=== PATIENT | female | born 1990 | race Caucasian/White ===

== ENCOUNTER 2018-11-17 22:40 | Emergency (ER) | payer OTHER ==
[~2018-11-17] VITALS: Ht 165.1 cm; Wt 123.8 kg
[2018-11-17 22:57] VITALS: Ht 165.1 cm; Wt 123.8 kg
[2018-11-18 01:17] VITALS: BP 109/61
== END 2018-11-18 01:17 | disposition home or self-care (01) ==
LOC: ED 22:40
DX: J20.9 Acute bronchitis, unspecified (principal); J06.9 Acute upper respiratory infection, unspecified

== ENCOUNTER 2019-06-18 22:24 | Emergency (ER) | payer OTHER ==
[~2019-06-18] VITALS: Ht 165.1 cm; Wt 135.9 kg
[2019-06-18 23:43] LABS: BASOPHIL % 0.4 % (0-2); PLATELET COUNT 370 x10^3mcL (130-400); RED CELL DISTRIBUTION WIDTH 13.8 % (11.5-14.5)
[2019-06-18 23:51] LABS: CALCIUM 8.1 mg/dL (8.5-10.1); CARBON DIOXIDE 24.7 mmol/L (21-32); CHLORIDE SERUM 106 mmol/L (98-107); CREATININE SERUM 0.8 mg/dL (0.6-1.0); GFR1 > 60 mL/min; GLUCOSE SERUM 110 mg/dL (74-106); POTASSIUM SERUM 3.8 mmol/L (3.5-5.1); SODIUM SERUM 142 mmol/L (136-145)
[2019-06-18 23:56] LABS: ALBUMIN 2.8 g/dL (3.4-5.0); ALKALINE PHOSPHATASE 82 U/L (46-116); ALT/SGPT 21 U/L (14-59); AST/SGOT 13 U/L (15-37); BILIRUBIN TOTAL 0.2 mg/dL (0.20-1.00)
[2019-06-19 00:23] LABS: AMPHETAMINE QUAL UR NONE DETECTED (See below)
[2019-06-19 00:53] VITALS: BP 120/98
== END 2019-06-19 00:53 | disposition home or self-care (01) ==
LOC: ED 22:24
PROVIDERS: Emergency Medicine
DX: F95.9 Tic disorder, unspecified (principal); R07.89 Other chest pain; R11.10 Vomiting, unspecified
CPT/HCPCS: 36415; Q0092

== ENCOUNTER 2019-08-14 21:37 | Emergency (ER) | payer OTHER ==
[~2019-08-14] VITALS: Ht 165.1 cm; Wt 133.8 kg
[2019-08-14 22:08] VITALS: BP 113/60
== END 2019-08-14 23:51 | disposition home or self-care (01) ==
LOC: ED 21:37
DX: J06.9 Acute upper respiratory infection, unspecified (principal); Z98.890 Other specified postprocedural states

== ENCOUNTER 2020-02-18 10:23 | Emergency (ER) | payer OTHER ==
[~2020-02-18] VITALS: Ht 165.1 cm; Wt 140.6 kg
[2020-02-18 10:29] VITALS: BP 133/89; Ht 165.1 cm; Wt 140.6 kg
== END 2020-02-18 11:02 | disposition home or self-care (01) ==
LOC: ED 10:23
DX: K08.89 Other specified disorders of teeth and supporting structures (principal)

== ENCOUNTER 2020-02-27 22:14 | Emergency (ER) | payer OTHER ==
[~2020-02-27] VITALS: Ht 165.1 cm; Wt 144.2 kg
[2020-02-27 22:28] VITALS: Ht 165.1 cm; Wt 144.2 kg
[2020-02-27 23:55] VITALS: BP 128/91
== END 2020-02-27 23:55 | disposition home or self-care (01) ==
LOC: ED 22:14
DX: K04.7 Periapical abscess without sinus (principal)

== ENCOUNTER 2020-07-04 16:41 | Emergency (ER) | payer OTHER ==
[~2020-07-04] VITALS: Ht 162.6 cm; Wt 143.8 kg
[2020-07-04 16:54] VITALS: Ht 162.6 cm; Wt 143.8 kg
[2020-07-04 18:29] LABS: microscopic required? YES; urine erythrocyte TRACE (NEGATIVE)
[2020-07-04 19:14] LABS: BASOPHIL % 1.3 % (0-2); PLATELET COUNT 345 x10^3mcL (130-400); RED CELL DISTRIBUTION WIDTH 14.3 % (11.5-14.5)
[2020-07-04 19:25] LABS: CALCIUM 8.7 mg/dL (8.5-10.1); CARBON DIOXIDE 24.5 mmol/L (21-32); CHLORIDE SERUM 104 mmol/L (98-107); CREATININE SERUM 0.7 mg/dL (0.6-1.0); GFR1 > 60 mL/min; GLUCOSE SERUM 86 mg/dL (74-106); SODIUM SERUM 137 mmol/L (136-145)
[2020-07-04 19:30] LABS: ALKALINE PHOSPHATASE 61 U/L (46-116); ALT/SGPT 27 U/L (14-59); AST/SGOT 16 U/L (15-37); BILIRUBIN TOTAL 0.2 mg/dL (0.20-1.00); LIPASE 63 IU/L (73-393); TOTAL PROTEIN, SERUM 7.2 g/dL (6.4-8.2)
[2020-07-04 19:31] LABS: ALBUMIN 3.1 g/dL (3.4-5.0)
[2020-07-04 20:57] VITALS: BP 113/68
== END 2020-07-04 20:57 | disposition home or self-care (01) ==
LOC: ED 16:41
PROVIDERS: Emergency Medicine
DX: N39.0 Urinary tract infection, site not specified (principal)
CPT/HCPCS: Q0092

== ENCOUNTER 2020-09-04 19:12 | Emergency (ER) | payer OTHER ==
[~2020-09-04] VITALS: Ht 162.6 cm; Wt 141.5 kg
[2020-09-04 19:24] VITALS: Ht 162.6 cm; Wt 141.5 kg
[2020-09-04 19:50] VITALS: BP 132/73
== END 2020-09-04 21:02 | disposition left against medical advice (07) ==
LOC: ED 19:12
DX: G40.909 Epilepsy, unspecified, not intractable, without status epilepticus (principal)
CPT/HCPCS: J2060

== ENCOUNTER 2020-11-15 17:21 | Emergency (ER) | payer OTHER ==
[~2020-11-15] VITALS: Ht 170.2 cm; Wt 101.6 kg
[2020-11-15 17:35] VITALS: BP 159/88; Ht 170.2 cm; Wt 101.6 kg
== END 2020-11-15 18:47 | disposition home or self-care (01) ==
LOC: ED 17:21
DX: M79.672 Pain in left foot (principal); M79.10 Myalgia, unspecified site; M54.6 Pain in thoracic spine